=== PATIENT | male | born 1990 | race Caucasian/White ===

== ENCOUNTER 2017-10-09 13:03 | Emergency (ER) | payer OTHER, SELFPAY ==
--- NOTE | 2017-10-09 15:35 | RAD REPORT ---
EXAM DESCRIPTION: RAD - Knee Right 3 View - 10/09/2017 3:14 pm CLINICAL HISTORY: Left knee pain and swelling COMPARISON: None. FINDINGS: No fracture, dislocation or periosteal reaction.No joint effusion seen. No joint space millie rowing. No foreign body or other soft tissue abnormality. IMPRESSION: Negative right knee. Clinical concerns for internal derangement or occult bony injury could be further assessed with MR im aging.
--- NOTE | 2017-10-09 15:42 | ER ---
Nurse's Notes [facility] Name: Etienne Dumont Age: 27 yrs Sex: Male : 1990 Arrival Date: 10/09/2017 Time: 13:11 Bed 12 Private MD: Diagnosis: Pain in right knee Presentation: 10/09 13:20 Presenting complaint: Patient states: right knee pain x "couple of months". Transition sv of care: patient was not received from another setting of care. Onset of symptoms was 2017. Care prior to arrival: None. 13:20 Method Of Arrival: Ambulatory sv 13:20 Acuity: FRACISCO 4 sv 14:56 Risk Assessment: Do you want to hurt yourself or someone else? Patient reports no kr2 desire to harm self or others. Initial Sepsis Screen: Does the patient meet any 2 criteria? No. Patient's initial sepsis screen is negative. Does the patient have a suspected source of infection? No. Patient's initial sepsis screen is negative. Historical: - Allergies: 13:21 No Known Allergies; sv - Home Meds: 13:21 None [Active]; sv - PMHx: 13:21 None; sv - PSHx: 13:21 None; sv - Immunization history:: Adult Immunizations up to date. - Social history:: Smoking status: Patient/guardian denies using tobacco. - Ebola Screening: : No symptoms or risks identified at this time. Screenin:45 Abuse screen: Denies threats or abuse. Denies injuries from another. Nutritional kr2 screening: No deficits noted. Tuberculosis screening: No symptoms or risk factors identified. Fall Risk None identified. Assessment: 13:45 General: Appears in no apparent distress. comfortable, well groomed, well developed, kr2 well nourished, Behavior is calm, cooperative, appropriate for age. Pain: Complains of pain in right knee Pain currently is 6 out of 10 on a pain scale. Quality of pain is described as aching, Is continuous, Alleviated by rest, Aggravated by increased activity. Neuro: Level of Consciousness is awake, alert, obeys commands, Oriented to person, place, time, situation. Cardiovascular: Capillary refill < 3 seconds in bilateral fingers Patient's skin is warm and dry. Respiratory: Airway is patent Respiratory effort is even, unlabored, Respiratory pattern is regular, symmetrical. Derm: Skin is intact, is healthy with good turgor, Skin is pink, warm \\T\\ dry. Musculoskeletal: Range of motion: limited in right knee. 14:45 Reassessment: Patient appears in no apparent distress at this time. Patient and/or kr2 family updated on plan of care and expected duration. Pain level reassessed. Patient is alert, oriented x 3, equal unlabored respirations, skin warm/dry/pink. 15:54 Reassessment: Patient appears in no apparent distress at this time. Patient and/or kr2 family updated on plan of care and expected duration. Pain level reassessed. Patient is alert, oriented x 3, equal unlabored respirations, skin warm/dry/pink. Vital Signs: 13:21 BP 148 / 59; Pulse 74; Resp 18; Temp 97.9; Pulse Ox 99% ; Weight 88.45 kg; Height 5 ft. sv 11 in. (180.34 cm); Pain 6/10; 14:45 BP 136 / 60; Pulse 74; Resp 18; Pulse Ox 99% on R/A; kr2 13:21 Body Mass Index 27.20 (88.45 kg, 180.34 cm) sv ED Course: 13:11 Patient arrived in ED. es 13:20 Triage completed. sv 13:21 Arm band placed on left wrist. sv 13:30 Patient has correct armband on for positive identification. Bed in low position. Call kr2 light in reach. Door closed. 13:49 Cheng Walton NP is PHCP. pm1 13:49 Everardo Jason MD is Attending Physician. pm1 14:54 Shilpa Stringer RN is Primary Nurse. kr2 15:12 Knee Right 3 View XRAY In Process Unspecified. EDMS 15:14 X-ray completed. Portable x-ray completed in exam room. Patient tolerated procedure la2 well. 15:43 Duy Reyes MD is Referral Physician. pm1 15:53 No provider procedures requiring assistance completed. Patient did not have IV access kr2 during this emergency room visit. Administered Medications: No medications were administered Outcome: 15:42 Discharge ordered by . pm1 15:54 Discharged to home ambulatory. kr2 15:54 Condition: good 15:54 Discharge instructions given to patient, Instructed on discharge instructions, follow up and referral plans. Demonstrated understanding of instructions, follow-up care. 15:55 Patient left the ED. kr2 Signatures: Dispatcher [employer] Theresa Sotelo, RN RN Damaris Wilcox Patrick, MAI STAFFING CLERK pm1 Riri Mathew2 Shilpa Stringer RN RN kr2
--- NOTE | 2017-10-09 15:42 | EDPHYS ---
Physician Documentation [facility] Name: Etienne Dumont Age: 27 yrs Sex: Male : 1990 Arrival Date: 10/09/2017 Time: 13:11 Bed 12 Private MD: ED Physician Everardo Jason HPI: 10/09 15:40 This 27 yrs old Male presents to ER via Ambulatory with complaints of Knee pm1 Pain. 15:40 The patient presents with pain. The complaints affect the right knee. Context: The pm1 problem was sustained at home, resulted from twisting of the extremity, self popping his knees, the patient can fully bear weight, the patient is able to ambulate. Onset: The symptoms/episode began/occurred 3 month(s) ago, worse the past 2 weeks. Modifying factors: The symptoms are alleviated by nothing. the symptoms are aggravated by bending knee. Associated signs and symptoms: Pertinent positives:. Treatment prior to arrival includes: no previous treatment. Severity of symptoms: in the emergency department the symptoms are actually worse. The patient has not recently seen a physician. Historical: - Allergies: 13:21 No Known Allergies; sv - Home Meds: 13:21 None [Active]; sv - PMHx: 13:21 None; sv - PSHx: 13:21 None; sv - Immunization history:: Adult Immunizations up to date. - Social history:: Smoking status: Patient/guardian denies using tobacco. - Ebola Screening: : No symptoms or risks identified at this time. ROS: 15:40 Constitutional: Negative for fever, chills, and weight loss, Eyes: Negative for injury, pm1 pain, redness, and discharge, ENT: Negative for injury, pain, and discharge, Neck: Negative for injury, pain, and swelling, Cardiovascular: Negative for chest pain, palpitations, and edema, Respiratory: Negative for shortness of breath, cough, wheezing, and pleuritic chest pain, Abdomen/GI: Negative for abdominal pain, nausea, vomiting, diarrhea, and constipation, Back: Negative for injury and pain. 15:40 Skin: Negative for injury, rash, and discoloration, Neuro: Negative for headache, weakness, numbness, tingling, and seizure. 15:40 MS/extremity: Positive for pain, of the right knee, Negative for decreased range of motion, deformity. Exam: 15:40 Constitutional: This is a well developed, well nourished patient who is awake, alert, pm1 and in no acute distress. Head/Face: Normocephalic, atraumatic. Neck: Trachea midline, no thyromegaly or masses palpated, and no cervical lymphadenopathy. Supple, full range of motion without nuchal rigidity, or vertebral point tenderness. No Meningismus. Chest/axilla: Normal chest wall appearance and motion. Nontender with no deformity. No lesions are appreciated. Cardiovascular: Regular rate and rhythm with a normal S1 and S2. No gallops, murmurs, or rubs. Normal PMI, no JVD. No pulse deficits. Respiratory: Lungs have equal breath sounds bilaterally, clear to auscultation and percussion. No rales, rhonchi or wheezes noted. No increased work of breathing, no retractions or nasal flaring. Abdomen/GI: Soft, non-tender, with normal bowel sounds. No distension or tympany. No guarding or rebound. No evidence of tenderness throughout. Back: No spinal tenderness. No costovertebral tenderness. Full range of motion. Skin: Warm, dry with normal turgor. Normal color with no rashes, no lesions, and no evidence of cellulitis. 15:40 Musculoskeletal/extremity: Extremities: grossly normal except: noted in the medial aspect of right knee: tenderness, ROM: full active range of motion, in the right knee, full passive range of motion, in the right knee. Vital Signs: 13:21 BP 148 / 59; Pulse 74; Resp 18; Temp 97.9; Pulse Ox 99% ; Weight 88.45 kg; Height 5 ft. sv 11 in. (180.34 cm); Pain 6/10; 14:45 BP 136 / 60; Pulse 74; Resp 18; Pulse Ox 99% on R/A; kr2 13:21 Body Mass Index 27.20 (88.45 kg, 180.34 cm) sv MDM: 13:49 Patient medically screened. pm1 15:41 Data reviewed: vital signs. Data interpreted: Pulse oximetry: on room air is 99 %. pm1 Interpretation: normal. Counseling: I had a detailed discussion with the patient and/or guardian regarding: the historical points, exam findings, and any diagnostic results supporting the discharge/admit diagnosis, radiology results, the need for outpatient follow up, to return to the emergency department if symptoms worsen or persist or if there are any questions or concerns that arise at home. 10/09 14:22 Order name: Knee Right 3 View XRAY; Complete Time: 15:41 pm1 10/09 15:44 Order name: Keith wrap-joint; Complete Time: 15:52 pm1 Administered Medications: No medications were administered Disposition: 18:29 Co-signature as Attending Physician, Everardo Jason MD I agree with the assessment and kdr plan of care. Disposition: 10/09/17 15:42 Discharged to Home. Impression: Pain in right knee. - Condition is Stable. - Discharge Instructions: Knee Pain. - Medication Reconciliation Form, Thank You Letter, Prescription Opioid Use, Work release form form. - Follow up: Emergency Department; When: As needed; Reason: Worsening of condition. Follow up: Private Physician; When: 2 - 3 days; Reason: Recheck today's complaints, Continuance of care, Re-evaluation by your physician. Follow up: Duy Reyes MD; When: 2 - 3 days; Reason: Recheck today's complaints, Continuance of care, Re-evaluation by your physician. - Problem is new. - Symptoms have improved. Signatures: Dispatcher [employer] EDMS Theresa Lechuga RN RN Everardo Peralta MD MD kdr Cheng Walton, MAI DIRECTOR OF HEALTH EDUCATION pm1 Shilpa Stringer RN RN kr2 Corrections: (The following items were deleted from the chart) 15:43 15:42 10/09/2017 15:42 Discharged to Home. Impression: Pain in right knee. Condition is pm1 Stable. Forms are Medication Reconciliation Form, Thank You Letter, Antibiotic Education, Prescription Opioid Use. Follow up: Emergency Department; When: As needed; Reason: Worsening of condition. Follow up: Private Physician; When: 2 - 3 days; Reason: Recheck today's complaints, Continuance of care, Re-evaluation by your physician. Problem is new. Symptoms have improved. pm1 15:55 15:43 10/09/2017 15:42 Discharged to Home. Impression: Pain in right knee. Condition is kr2 Stable. Discharge Instructions: Knee Pain. Forms are Medication Reconciliation Form, Thank You Letter, Prescription Opioid Use. Follow up: Emergency Department; When: As needed; Reason: Worsening of condition. Follow up: Private Physician; When: 2 - 3 days; Reason: Recheck today's complaints, Continuance of care, Re-evaluation by your physician. Follow up: Dr. Duy Reyes; When: 2 - 3 days; Reason: Recheck today's complaints, Continuance of care, Re-evaluation by your physician. Problem is new. Symptoms have improved. pm1
== END 2017-10-09 15:55 | disposition home or self-care (01) ==
LOC: ER 13:03
DX: M25.561 Pain in right knee (principal)
CPT/HCPCS: 99283

== ENCOUNTER 2019-11-30 07:52 | Emergency (ER) | payer SELFPAY ==
--- OUTSIDE RECORDS SUMMARY | 2019-11-30 07:54 | XMS REPORT | Continuity of Care Document ---
:[address] [facility] t Address [address] [place] [address] Care Team Providers Name Role Phone DR RUBINA Attending Clinician Unavailable DR RUBINA Admitting Clinician Unavailable Problems This patient has no known problems. Allergies, Adverse Reactions, Alerts This patient has no known allergies or adverse reactions. Medications This patient has no known medications. Procedures This patient has no known procedures. Encounters Start End Encounter Admission Attending Care Care Encounter Source Date/Time Date/Time Type Type Clinicians Facility Department ID 2018-08-07 2018-08-07 Emergency E RUBINA, [facility] [id number] [facility] 20:54:00 22:10:00 [facility] Results Test Description Test Time Test Comments Results Result Comments Source URINALYSIS WITH MICRO 2018-08-07 22:03:00 Test Item Value Reference Range Interpretation Comme nts COLOR (test code = COLU) DK YELLOW YELLOW A CLARITY (test code = CLA) CLOUDY CLEAR A GLUCOSE UR (test code = UA GLUCOSE) NEGATIVE NEGATIVE BILI UR (test code = BILE) 1+ NEGATIVE A KETONES UR (test code = MARCI) 1+ NEGATIVE A SP GRAVITY (test code = SPGR) 1.027 1.005-1.030 PH UR (test code = PH) 6.0 4.5-8.0 PROTEIN UR (test code = PU) 2+ NEGATIVE A UROBIL UR (test code = UROQ) 1.0 EU/dL 0.2-1.0 NITRITE UR (test code = NITRITE) NEGATIVE NEGATIVE BLOOD UR (test code = UA BLOOD) 2+ NEGATIVE A LEUK ES UR (test code = LEUK) 1+ NEGATIVE A WBC UR (test code = UWBC) 4 /HPF 0-3 H RBC UR (test code = URBC) 12 /HPF 0-2 H EPITH UR (test code = UEPC) FEW /LPF NONE A BACTERIA UR (test code = UBACT) NONE /HPF NONE CAST UR (test code = CAST) HYALINE FEW /LPF NONE A CRYSTAL UR (test code = CRYU) CALCIUM OXALATE FEW / LPF NONE A MUCUS UR (test code = MUC) MODERATE / HPF NONE A AMORPH UR (test code = CESAR) FEW / HPF NONE A TRICH UR (test code = UTRICH) /HPF NONE YEAST UR (test code = UY) /HPF NONE SPERM UR (test code = USPERM) MANY /HPF NONE A DRUGS OF [id number] 22:02:00 Test Item Value Reference Range Interpretation Comments DRUG SCRN (test code URINE DRUG SCREEN = HDOA) This is an unconfirmed screening result and should not be used for non-medical purposes CANNABINOD (test code Negative NEGATIVE = 88C) AMPHETAMINE (test POSITIVE NEGATIVE A code = 84A) BENZODIAZP (test code Negative NEGATIVE = 86A) BARBITURAT (test code Negative NEGATIVE = 85A) OPIATES (test code = Negative NEGATIVE 92B) COCAINE (test code = POSITIVE NEGATIVE A 87A) PHENCYCLID (test code Negative NEGATIVE = 66A) METHADONE (test code Negative NEGATIVE = 64A) DOAH (test code = DOAH.) *URINE DRUG SCREEN Cut-off values are as follows: Cannabinoids 50 ng/mL Cocaine 300 ng/mL Amphetamines 1000 ng/mL Phencyclidine 25 ng/mL Benzodiazepines 200 ng.mL Methadone 300 ng/mL Barbiturates 200 ng/mL Opiates 2000 ng/mL AMYLASE AND [id number] 22:00:00 Test Item Value Reference Range Interpretation Comments AMYLASE (test code = 10A) 50 U/L 28-100 LIPASE (test code = 60A) 86 IU/L 73-393 COMPREHENSIVE METABOLIC [id number] 22:00:00 Test Item Value Reference Range Interpretation Comments GLUCOSE (test code = 06D) 131 mg/dL 75-100 H SODIUM (test code = 01A) 139 mmol/L 136-145 POTASSIUM (test code = 01B) 4.1 mmol/L 3.6-5.1 CHLORIDE (test code = 04A) 103 mmol/L 98-107 CO2 (test code = 02A) 26 mmol/L 22-32 ANION GAP (test code = ANG) 14.1 mmol/L BUN (test code = 05D) 26 mg/dL 7-18 H CREATININE (test code = 03E) 2.6 mg/dL 0.7-1.3 H BUN/CREA (test code = BCR) 10 12-20 L CALCIUM (test code = 09D) 9.9 mg/dL 8.3-9.5 H BILI TOTAL (test code = 11A) 1.6 mg/dL 0.2-1.0 H PROTEIN (test code = 07D) 7.8 g/dL 6.4-8.2 ALBUMIN (test code = 08D) 4.5 g/dL 3.5-4.8 GLOBULIN (test code = GLB) 3.3 g/dL 1.5-3.8 ALB/GLOB (test code = AGRR) 1.4 1.0-2.6 ALK PHOS (test code = 35A) 66 IU/L 42-121 AST (test code = 30A) 9 IU/L <=42 ALT (test code = 31A) 14 IU/L <=78 CARDIAC [id number] 21:59:00 Test Item Value Reference Range Interpretation Comments TROPONIN I (test code = A84) <0.015 ng/mL 0.000-0.045 [id number] 21:54:00 Test Item Value Reference Range Interpretation Comments MAGNESIUM (test code = 48A) 2.1 mg/dL 1.8-2.4 [id number] 21:53:00 Test Item Value Reference Range Interpretation Comments SALICYLATE (test code = 94B) <1.7 mg/dL 2.8-20.0 L CBC (INCLUDES AUTOMATED DIFFERENTIAL)2018-08-07 21:43:00 Test Item Value Reference Range Interpretation Comments WBC (test code = WBC) 19.4 10\S\3/uL 4.5-11.0 H RBC (test code = RBC) 4.99 10\S\6/uL 4.30-5.70 HGB (test code = HBG) 14.3 g/dL 14.0-18.0 HCT (test code = HCT) 42.1 % 35.0-46.0 MCV (test code = MCV) 84.4 fL 80.0-94.0 MCH (test code = MCH) 28.7 pg 27.0-31.0 MCHC (test code = MCHC) 34.0 g/dL 32.0-36.0 RDW (test code = RDW) 12.5 % 11.5-14.5 PLT (test code = PLT) 317 10\S\3/uL 130-400 MPV (test code = MPV) 10.8 fL 9.4-12.4 NEUTROP # (test code = NE#) 15.8 10\S\3/uL 2.0-8.0 H LYMPH # (test code = LY#) 1.3 10\S\3/uL 1.2-4.0 MONOCYTE # (test code = MO#) 2.2 10\S\3/uL 0.0-1.1 H EOSINOPH # (test code = EO#) 0.0 10\S\3/uL 0.0-0.7 BASOPHIL # (test code = BA#) 0.0 10\S\3/uL 0.0-0.3 IG # (test code = IG#) 0.09 10\S\3/uL 0.00-0.06 H NRBC # (test code = NRBC#) 0.00 10\S\3/uL 0.00-0.01 NEUTROPH % (test code = NE%) 81.3 % 35.0-73.0 H LYMPH % (test code = LY%) 6.6 % 20.0-55.0 L MONO % (test code = MO%) 11.5 % 2.5-10.0 H EOSINOPH % (test code = EO%) 0.0 % 0.0-5.0 BASOPHIL % (test code = BA%) 0.1 % 0.0-2.0 IG % (test code = IG%) 0.5 % 0.0-0.8 NRBC% (test code = NRBC%) 0.0 % 0.0-0.2 MANDIFF (test code = MDIFF) NO NO RBC MORPH (test code = RBCMOR) NORMAL
[2019-11-30] MEDS ORDERED: NA CHLORIDE 0.9% 1,000 ML ONE (08:23)
[2019-11-30 08:30] LABS: Absolute Lymphocytes (CBC) 1.2 K/uL (0.7-4.9); Basophils % 0.2 % (0-1.3); Hematocrit 41.1 % (39.6-49.0); Lymphocytes % 16.3 % (15.3-44.8); MPV 9.3 fL (7.6-11.3); RBC Red Blood Cell Count 4.89 M/uL (4.33-5.43)
[2019-11-30 08:47] LABS: Albumin 4.3 g/dL (3.4-5.0); Bilirubin Direct 0.1 mg/dL (0-0.2); Bilirubin Total 0.6 mg/dL (0.2-1.0); Potassium 3.8 mmol/L (3.5-5.1); Protein, Total 7.9 g/dL (6.4-8.2)
--- NOTE | 2019-11-30 08:59 | RAD REPORT ---
EXAM DESCRIPTION: CT - Abdomen Pelvis W Contrast - 11/30/2019 8:41 am CLINICAL HISTORY: Abdominal pain/flank pain COMPARISON: none. TECHNIQUE: Computed axial tomography of the abdomen pelvis was obtained. 100 cc Isovue-300 was admin istered intravenously. Oral contrast was not requested which limits evaluation of bowel. All CT scans are performed using dose optimization technique as appropriate and may include automated exposure control or mA/KV adjustment according to patient size. FINDINGS: The liver, spleen, pancreas, adrenal and right kidney appear unremarkable. 1 centimeter le ft renal cyst There is no evidence of diverticulitis. Normal appendix Large amount of stool throughout the colon IMPRESSION: Large amount of stool throughout the colon
--- NOTE | 2019-11-30 10:04 | EDPHYS ---
Physician Documentation [facility] Name: Etienne Dumont Age: 29 yrs Sex: Male : 1990 Arrival Date: 11/30/2019 Time: 07:57 Bed 7 Private MD: None, None ED Physician Everardo Jason HPI: 11/29 08:07 This 29 yrs old Male presents to ER via Ambulatory with complaints of Back pm1 Pain. 08:07 The patient presents with pain Left flank pain. The symptoms are located in the left pm1 low back. Onset: The symptoms/episode began/occurred 1 month(s) ago. The pain does not radiate. Associated signs and symptoms: Pertinent positives: Increased urination, Pertinent negatives: abdominal pain, chest pain, fever, nausea, numbness, vomiting, weakness. The problem was sustained from unknown cause. Modifying factors: The patient symptoms are alleviated by nothing, the patient symptoms are aggravated by movement. Severity of symptoms: in the emergency department the symptoms are unchanged. The patient has not experienced similar symptoms in the past. The patient has not recently seen a physician. Historical: - Allergies: 08:07 No Known Allergies; sv - PMHx: 08:07 None; sv - PSHx: 08:07 None; sv - Immunization history:: Adult Immunizations up to date. - Social history:: Smoking status: Patient denies any tobacco usage or history of. ROS: 08:07 Constitutional: Negative for fever, chills, and weight loss, Cardiovascular: Negative pm1 for chest pain, palpitations, and edema, Respiratory: Negative for shortness of breath, cough, wheezing, and pleuritic chest pain, Abdomen/GI: Negative for abdominal pain, nausea, vomiting, diarrhea, and constipation. 08:07 MS/Extremity: Negative for injury and deformity, Skin: Negative for injury, rash, and discoloration, Neuro: Negative for headache, weakness, numbness, tingling, and seizure. 08:07 Back: Positive for flank pain, on the left. 08:07 : Positive for urinary frequency, Increased urination, Negative for burning with urination, difficulty urinating, penile discharge, penile pain, testicular pain Exam: 08:07 Constitutional: This is a well developed, well nourished patient who is awake, alert, pm1 and in no acute distress. Head/Face: Normocephalic, atraumatic. 08:07 Skin: Warm, dry with normal turgor. Normal color with no rashes, no lesions, and no evidence of cellulitis. MS/ Extremity: Pulses equal, no cyanosis. Neurovascular intact. Full, normal range of motion. 08:07 Cardiovascular: Exam negative for acute changes, Rate: normal, Rhythm: regular, Pulses: no pulse deficits are appreciated. 08:07 Respiratory: Exam negative for acute changes, respiratory distress, shortness of breath. 08:07 Abdomen/GI: Inspection: abdomen appears normal, Palpation: abdomen is soft and non-tender, in all quadrants. 08:07 Back: pain, that is mild, of the left low back, normal spinal alignment noted. 08:07 Neuro: Exam negative for acute changes, Orientation: is normal, Mentation: is normal, Motor: is normal, moves all fours, Sensation: is normal, no obvious gross deficits, Gait: is steady, at a normal pace, without difficulty. Vital Signs: 08:06 BP 133 / 75; Pulse 66; Resp 16; Temp 98.3; Pulse Ox 96% ; Weight 88.45 kg; Height 6 ft. sv 0 in. (182.88 cm); Pain 6/10; 08:06 Body Mass Index 26.45 (88.45 kg, 182.88 cm) sv MDM: 08:02 Patient medically screened. pm1 08:07 ED course: Patient reports 6/10 pain. However, patient refused pain medication plan in pm1 the ER. 08:13 Data reviewed: vital signs. Data interpreted: Pulse oximetry: on room air is 96 %. pm1 Interpretation: normal. 09:30 Counseling: I had a detailed discussion with the patient and/or guardian regarding: lab pm1 results, radiology results, Patient denies any constipation. Has BM daily, but reports eating lots of food at a time. Discussed renal cyst and need for follow up with PCP. Pending urine dip test prior to disposition. 11/29 08:07 Order name: Basic Metabolic Panel; Complete Time: 08:51 pm1 11/29 08:07 Order name: CBC with Diff; Complete Time: 08:51 pm1 11/29 08:07 Order name: Hepatic Function; Complete Time: 08:51 pm1 11/29 08:07 Order name: Lipase; Complete Time: 08:51 pm1 11/29 08:07 Order name: CT Abd/Pelvis - IV Contrast Only; Complete Time: 09:08 pm1 11/29 10:10 Order name: Urine Dipstick--Ancillary (enter results) eb 11/29 08:07 Order name: IV Saline Lock; Complete Time: 08:40 pm1 11/29 08:07 Order name: Labs collected and sent; Complete Time: 08:40 pm1 11/29 08:07 Order name: Urine Dipstick-Ancillary (obtain specimen); Complete Time: 10:07 pm1 Administered Medications: 08:15 Drug: NS 0.9% 1000 ml Route: IV; Rate: 1000 ml; Site: right antecubital; sv 09:00 Follow up: Response: No adverse reaction; IV Status: Completed infusion; IV Intake: sv 1000ml Disposition: 11/30 08:41 Co-signature as Attending Physician, Everardo Jason MD I agree with the assessment and kdr plan of care. Disposition: 11/30/19 10:03 Discharged to Home. Impression: Low back pain. - Condition is Stable. - Discharge Instructions: Back Pain, Adult. - Prescriptions for Diclofenac Sodium 75 mg Oral Tablet, Delayed Release (E.C.) - take 1 tablet by ORAL route 2 times per day As needed; 30 tablet. - Medication Reconciliation Form, Thank You Letter, Antibiotic Education, Prescription Opioid Use form. - Follow up: Emergency Department; When: As needed; Reason: Worsening of condition. Follow up: Private Physician; When: 2 - 3 days; Reason: Recheck today's complaints, Continuance of care, Re-evaluation by your physician. - Problem is new. - Symptoms have improved. Signatures: Dispatcher [employer] Theresa Sotelo RN RN Everardo Peralta MD MD kdr Marinas, Patrick, NP ASSET PROTECTION MANAGER pm1 Neris Bell RN RN hb Corrections: (The following items were deleted from the chart) 11/29 10:14 10:03 11/30/2019 10:03 Discharged to Home. Impression: Low back pain. Condition is hb Stable. Forms are Medication Reconciliation Form, Thank You Letter, Antibiotic Education, Prescription Opioid Use. Follow up: Emergency Department; When: As needed; Reason: Worsening of condition. Follow up: Private Physician; When: 2 - 3 days; Reason: Recheck today's complaints, Continuance of care, Re-evaluation by your physician. Problem is new. Symptoms have improved. pm1
--- NOTE | 2019-11-30 10:04 | ER ---
Nurse's Notes [facility] Name: Etienne Dumont Age: 29 yrs Sex: Male : 1990 Arrival Date: 11/30/2019 Time: 07:57 Bed 7 Private MD: None, None Diagnosis: Low back pain Presentation: 11/29 08:06 Chief complaint: Patient states: left mid back pain x 1 month. Denies burning with sv urination. Coronavirus screen: Client denies travel out of the [place] in the last 14 days. At this time, the client does not indicate any symptoms associated with coronavirus-19. Ebola Screen: No symptoms or risks identified at this time. Initial Sepsis Screen: Does the patient meet any 2 criteria? No. Patient's initial sepsis screen is negative. Does the patient have a suspected source of infection? No. Patient's initial sepsis screen is negative. Risk Assessment: Do you want to hurt yourself or someone else? Patient reports no desire to harm self or others. Onset of symptoms was October 2019. 08:06 Method Of Arrival: Ambulatory sv 08:06 Acuity: FRACISCO 3 sv Triage Assessment: 08:06 General: Appears in no apparent distress. uncomfortable, well developed, Behavior is sv calm, cooperative, appropriate for age. Pain: Complains of pain in left low back Pain currently is 6 out of 10 on a pain scale. Quality of pain is described as tender, throbbing, Pain began a month Is intermittent. Neuro: Level of Consciousness is awake, alert, obeys commands, Oriented to person, place, time, situation, Moves all extremities. Full function Gait is steady. Respiratory: Respiratory effort is even, unlabored, Respiratory pattern is regular, symmetrical. : Denies burning with urination, urinary frequency. Musculoskeletal: Circulation, motion, and sensation intact. Range of motion: intact in all extremities. Historical: - Allergies: 08:07 No Known Allergies; sv - PMHx: 08:07 None; sv - PSHx: 08:07 None; sv - Immunization history:: Adult Immunizations up to date. - Social history:: Smoking status: Patient denies any tobacco usage or history of. Screenin:09 Abuse screen: Denies threats or abuse. Denies injuries from another. Nutritional sv screening: No deficits noted. Tuberculosis screening: No symptoms or risk factors identified. Fall Risk None identified. Assessment: 10:07 Reassessment: Patient appears in no apparent distress at this time. Patient and/or iw family updated on plan of care and expected duration. Pain level reassessed. Patient is alert, oriented x 3, equal unlabored respirations, skin warm/dry/pink. Patient states feeling better. Patient states symptoms have improved. Vital Signs: 08:06 BP 133 / 75; Pulse 66; Resp 16; Temp 98.3; Pulse Ox 96% ; Weight 88.45 kg; Height 6 ft. sv 0 in. (182.88 cm); Pain 6/10; 08:06 Body Mass Index 26.45 (88.45 kg, 182.88 cm) sv ED Course: 07:57 Patient arrived in ED. mr 07:57 None, None is Private Physician. mr 08:00 Theresa Lechuga RN is Primary Nurse. sv 08:01 Cheng Walton NP is PHCP. pm1 08:01 Everardo Jason MD is Attending Physician. pm1 08:07 Triage completed. sv 08:08 Nurse Practitioner and/or Physician Assembler Engine to see patient. sv 08:08 Arm band placed on. sv 08:09 Patient has correct armband on for positive identification. Placed in gown. Bed in low sv position. Call light in reach. Pulse ox on. NIBP on. Door closed. Head of bed elevated. 08:15 Inserted saline lock: 20 gauge in right antecubital area, using aseptic technique. sv Blood collected. Flushed right antecubital with 5 ml normal saline. 08:41 CT Abd/Pelvis - IV Contrast Only In Process Unspecified. EDMS 10:07 No provider procedures requiring assistance completed. IV discontinued, intact, iw bleeding controlled, No redness/swelling at site. Pressure dressing applied. Administered Medications: 08:15 Drug: NS 0.9% 1000 ml Route: IV; Rate: 1000 ml; Site: right antecubital; sv 09:00 Follow up: Response: No adverse reaction; IV Status: Completed infusion; IV Intake: sv 1000ml Intake: 09:00 IV: 1000ml; Total: 1000ml. sv Outcome: 10:03 Discharge ordered by . pm1 10:14 Patient left the ED. hb 10:14 Discharged to home ambulatory, Discharged by Neris KIRK sv 10:14 Condition: stable 10:14 Discharge instructions given to patient, Instructed on discharge instructions, follow up and referral plans. medication usage, Demonstrated understanding of instructions, follow-up care, medications, Prescriptions given X 1. Signatures: Dispatcher [employer] Theresa Sotelo RN RN Marcella Trevino Dana Canchola RN RN iw Cheng Walton, SUPERVISOR NUTRITIONAL YEAST SUPERVISOR NUTRITIONAL YEAST pm1 Neris Bell RN RN Corrections: (The following items were deleted from the chart) 08:41 08:15 NS 0.9% 1000 ml IV at 1000 ml in left antecubital sv
[2019-11-30 10:26] VITALS: BP 133/75; TEMP 98.3; O2SAT 96
[2019-11-30 11:03] LABS: Urine Blood NEGATIVE (NEG); Urine Glucose NEGATIVE (NEG); Urine Protein NEGATIVE (NEG); Urine pH 6.5 (5.0-7.0)
== END 2019-11-30 10:14 | disposition home or self-care (01) ==
LOC: ER 07:52
DX: M54.5 Low back pain (principal)
CPT/HCPCS: 36415; 74177; 80048; 80076; 81003; 82565; 83690; 85025; 96360; 99284; J7030; Q9967

== ENCOUNTER 2023-12-21 08:48 | Emergency (ER) | payer SELFPAY ==
--- NOTE | 2023-12-21 09:29 | ER ---
Nurse's Notes [facility] Name: Etienne Dumont Age: 33 yrs Sex: Male : 1990 Arrival Date: 12/21/2023 Time: 08:48 Bed 19 Private MD: Diagnosis: Acute maxillary sinusitis, unspecified Presentation: 12/20 08:59 Chief complaint: Patient states: Nasal congestion with green colored mucous, sore ll1 irritated throat, fatigue, REBOLLEDO, nausea off/on for 10 days. Coronavirus screen: Client denies travel out of the [place] in the last 14 days. congestion, fatigue, headache, muscle pain, nausea, sore throat, Client presents with at least one sign or symptom that may indicate coronavirus-19. Standard/surgical mask placed on the client. Ebola Screen: Patient denies travel to an Ebola-affected area in the 21 days before illness onset. Initial Sepsis Screen: Does the patient meet any 2 criteria? No. Patient's initial sepsis screen is negative. Does the patient have a suspected source of infection? No. Patient's initial sepsis screen is negative. Risk Assessment: Do you want to hurt yourself or someone else? Patient reports no desire to harm self or others. Onset of symptoms was December 11, 2023. 08:59 Method Of Arrival: Ambulatory ll1 08:59 Acuity: FRACISCO 4 ll1 Triage Assessment: 09:00 General: Appears in no apparent distress. Behavior is calm, cooperative, appropriate ll1 for age. General: Reports fatigue for. Pain: Denies pain. EENT: Reports nasal congestion pain when swallowing. Neuro: Reports headache. GI: Reports nausea. Historical: - Allergies: 08:58 No Known Allergies; ll1 - Home Meds: 08:58 None [Active]; ll1 - PMHx: 08:58 None; ll1 - PSHx: 08:58 None; ll1 - Immunization history:: Adult Immunizations up to date. - Infectious Disease History:: Denies. - Social history:: Smoking status: Patient denies any tobacco usage or history of. Screenin:01 [facility] ED Fall Risk Assessment (Adult) History of falling in the last 3 months, ll1 including since admission No falls in past 3 months (0 pts) Confusion or Disorientation No (0 pts) Intoxicated or Sedated No (0 pts) Impaired Gait No (0 pts) Mobility Assist Device Used No (0 pt) Altered Elimination No (0 pt) Score/Fall Risk Level 0 - 2 = Low Risk Maintained a safe environment, Hourly rounding (assess needs \T\ fall precautionary measures) done. Abuse screen: Denies threats or abuse. Nutritional screening: No deficits noted. Tuberculosis screening: No symptoms or risk factors identified. Assessment: 09:34 Reassessment: No changes from previously documented assessment. Patient and/or family ll1 updated on plan of care and expected duration. Pain level reassessed. Patient is alert, oriented x 3, equal unlabored respirations, skin warm/dry/pink. Vital Signs: 08:59 BP 134 / 95; Pulse 77; Resp 15; Temp 97.3; Pulse Ox 100% ; Weight 88.45 kg; Height 5 ll1 ft. 11 in. ; Pain 0/10; 08:59 Body Mass Index 27.20 (88.45 kg, 180.34 cm) ll1 08:59 Pain Scale: Adult 1 ED Course: 08:50 Patient arrived in ED. mg5 08:56 Gabby Sky MD is Attending Physician. gb1 08:58 Arm band placed on Patient placed in an exam room, on a stretcher. ll1 09:00 Triage completed. ll1 09:01 Patient has correct armband on for positive identification. Bed in low position. 1 Provided Education on: ER procedures and process. Cardiac monitoring not applicable on this patient. 09:35 No provider procedures requiring assistance completed. Patient did not have IV access 1 during this emergency room visit. Administered Medications: No medications were administered Medication: 09:02 VIS not applicable for this client. ll1 Outcome: 09:28 Discharge ordered by . gb1 09:35 Discharged to home ambulatory, ll1 09:35 Condition: stable 09:35 Discharge instructions given to patient, Instructed on discharge instructions, follow up and referral plans. medication usage, Demonstrated understanding of instructions, follow-up care, medications, Prescriptions given X 1, 09:35 Patient left the ED. ll1 Signatures: Hari Heredia RN RN ll1 Amy Alvarenga mg5 Gabby Sky MD MD gb1
--- NOTE | 2023-12-21 09:36 | EDPHYS ---
Physician Documentation [facility] Name: Etienne Dumont Age: 33 yrs Sex: Male : 1990 Arrival Date: 12/21/2023 Time: 08:48 Bed 19 Private MD: ED Physician Gabby Sky HPI: 12/20 09:30 This 33 yrs old Male presents to ER via Ambulatory with complaints of Flu gb1 Symptoms. 09:30 33-year-old male with nasal congestion and green phlegm. No fevers or chills. No cough gb1 or chest congestion. Patient's been using an [id number] allergy medicine as well as he has used Flonase in the past and states that once he started using the sprays in his nose he felt like he always had to have it. He does not use any with his acute current flare. Patient has also been sneezing. Historical: - Allergies: 08:58 No Known Allergies; ll1 - Home Meds: 08:58 None [Active]; ll1 - PMHx: 08:58 None; ll1 - PSHx: 08:58 None; ll1 - Immunization history:: Adult Immunizations up to date. - Infectious Disease History:: Denies. - Social history:: Smoking status: Patient denies any tobacco usage or history of. Exam: 09:30 Constitutional: This is a well developed, well nourished patient who is awake, alert, gb1 and in no acute distress. Head/Face: Normocephalic, atraumatic. Eyes: Pupils equal round and reactive to light, extra-ocular motions intact. Lids and lashes normal. Conjunctiva and sclera are non-icteric and not injected. Cornea within normal limits. Periorbital areas with no swelling, redness, or edema. ENT: Nares patent. No nasal discharge, no septal abnormalities noted. Tympanic membranes are normal and external auditory canals are clear. Oropharynx with no redness, swelling, or masses, exudates, or evidence of obstruction, uvula midline. Mucous membranes moist. Neck: Trachea midline, no thyromegaly or masses palpated, and no cervical lymphadenopathy. Supple, full range of motion without nuchal rigidity, or vertebral point tenderness. No Meningismus. Chest/axilla: Normal chest wall appearance and motion. Nontender with no deformity. No lesions are appreciated. Cardiovascular: Regular rate and rhythm with a normal S1 and S2. No gallops, murmurs, or rubs. Normal PMI, no JVD. No pulse deficits. Respiratory: Lungs have equal breath sounds bilaterally, clear to auscultation and percussion. No rales, rhonchi or wheezes noted. No increased work of breathing, no retractions or nasal flaring. Abdomen/GI: Soft, non-tender, with normal bowel sounds. No distension or tympany. No guarding or rebound. No evidence of tenderness throughout. Back: No spinal tenderness. No costovertebral tenderness. Full range of motion. Skin: Warm, dry with normal turgor. Normal color with no rashes, no lesions, and no evidence of cellulitis. MS/ Extremity: Pulses equal, no cyanosis. Neurovascular intact. Full, normal range of motion. Neuro: Awake and alert, GCS 15, oriented to person, place, time, and situation. Cranial nerves II-XII grossly intact. Motor strength 5/5 in all extremities. Sensory grossly intact. Cerebellar exam normal. Normal gait. Psych: Awake, alert, with orientation to person, place and time. Behavior, mood, and affect are within normal limits. Vital Signs: 08:59 BP 134 / 95; Pulse 77; Resp 15; Temp 97.3; Pulse Ox 100% ; Weight 88.45 kg; Height 5 ll1 ft. 11 in. ; Pain 0/10; 08:59 Body Mass Index 27.20 (88.45 kg, 180.34 cm) ll1 08:59 Pain Scale: Adult ll1 MDM: 09:05 Medical Screening Exam initiated gb1 09:30 ED course: 33-year-old male with an acute allergic sinusitis. Doubt focal pneumonia, gb1 COVID or influenza. Patient denies any fever or chills and today looks stable. No signs of overt sepsis no peritonsillar abscess on exam lungs are clear to auscultation bilaterally. No increased work of breathing or any signs of respite distress. Patient's O2 saturations at 100% and I did evaluate him and discussed with him the fact that he has been having the symptoms for 10 days and is likely viral versus allergic. I did recommend Eileen-D [id number] as well and I stated today that a steroid at this point would not be as effective. Patient is compliant with this plan of care prior discharge home will follow-up routinely with a primary care doctor.. Administered Medications: No medications were administered Disposition Summary: 12/21/23 09:28 Discharge Ordered Notes: Location: Home gb1 Problem: new gb1 Symptoms: are unchanged gb1 Condition: Stable gb1 Diagnosis - Acute maxillary sinusitis, unspecified gb1 Followup: gb1 - With: Private Physician - When: 24 Hours - Reason: Recheck today's complaints, Continuance of care Discharge Instructions: - Discharge Summary Sheet ss - Sinusitis, Adult, [id number] gb1 Forms: - Work release form ss - Medication Reconciliation Form gb1 - Antibiotic Education gb1 - Prescription Opioid Use gb1 - Patient Portal Instructions gb1 - Leadership Thank You Letter gb1 Prescriptions: - Zithromax Z-Egn 250 mg Oral Tablet - take 1 tablet ORAL route as directed for 5 days Day 1 - take two (2) tablets gb1 one time. Day 2, 3, 4 , 5 take one (1) tablet once daily.; 6 tablet; Refills: 0, Product Selection Permitted Signatures: Hari Heredia RN RN ll1 Gabby Sky MD MD gb1
[2023-12-21 10:06] VITALS: BP 134/95; TEMP 97.3; O2SAT 100
== END 2023-12-21 09:35 | disposition home or self-care (01) ==
LOC: ER 08:48
DX: J01.00 Acute maxillary sinusitis, unspecified (principal)
CPT/HCPCS: 99283